=== PATIENT | male | born 1955 | race Caucasian/White ===

== ENCOUNTER 2017-06-07 07:43 | Day surgery (SDC) | payer MEDICARE ==
[~2017-06-07] VITALS: Ht 180.3 cm; Wt 127.0 kg
[~2017-06-07 07:43] MED LIST: ACHD5005 PO; HCT25T PO; HUMOLOG INSULIN; HYDR-3583 PO; HYDR-707 PO; HYDR25TA4 PO; IBP800T PO; INSU100I14 SQ; INSU100I5 SQ; INSU100V16 SQ; INSU100V5 SQ; LOSA50TA36 PO; LOSA50TA6 PO; MTF500T PO; ROSU20TA30 PO; SULF-222 PO; SULF1TAB38 PO; TRAM-42 PO; TRAM50TA2 PO; [UNRECOGNIZED DRUG - OTHER]
[2017-06-07 07:57] VITALS: BP 164/85
--- NOTE | 2017-06-07 07:58 | Progress Note-Pre Operative ---
Pre-Operative Progress Note H&P Reviewed The H&P was reviewed, patient examined and no changes noted. Time Seen by Provider: 07:58 Date H&P Reviewed: Jun 07, 2017 Time H&P Reviewed: 07:58 Pre-Operative Diagnosis: pco l eye CHEKO CARRENO MD Jun 07, 2017 07:58
[2017-06-07] MEDS ORDERED: TROPICAMIDE 1% OPH SOLN (MYDRIACYL) 3 ML BTL OU ONE (08:00)
[2017-06-07] MEDS: TETRACAINE 0.5% OPHTH SOLN 4 ML BTL (SINGLE DOSE ONLY) OU PRN ×4 (08:07→08:45)
[2017-06-07] MEDS: PHENYLEPHRINE 10% OPHTH (NEO-SYN) 5 ML BTL OP PRN ×3 (08:15→08:45)
[2017-06-07 09:16] VITALS: BP 156/86
--- NOTE | 2017-06-07 09:19 | Ophthalmology Operative Report ---
YAG Capsulotomy PREOPERATIVE DIAGNOSIS: Secondary Cataract Left Eye POSTOPERATIVE DIAGNOSIS: Secondary Cataract Left Eye PROCEDURE: YAG Capsulotomy, left eye SURGEON: Tay Carreno ANESTHESIA: Topical with sedation COMPLICATIONS: None ESTIMATED BLOOD LOSS: Minimal DESCRIPTION OF PROCEDURE: After proper informed consent was obtained, the patient's, a 61 male left eye received one drop of Tropicamide and one drop of Tetracaine. The patient was then placed at the YAG laser and using a power of [ 3.5] millijoules and [26] bursts were used to fashion a central capsulotomy. The patient tolerated the procedure well without complications and the patient's pressure was [ 12] shortly after the laser. TAY CARRENO MD Jun 07, 2017 09:19
--- OUTSIDE RECORDS SUMMARY | 2017-06-07 16:20 | XMS REPORT ---
Author NINA Crain Organization [employer] Address Unknown Phone Unavailable Care Team Providers Care Wire Preparation Worker Name Role Phone NINA BOB CP Unavailable Allergies No Known Allergies Problems Problem Type Condition Code Onset Dates Condition Status Problem Cough 786.2 Active Problem Cellulitis and abscess of unspecified site 682.9 Active Problem Encounter for change or removal of surgical wound dressing V58.31 Active Problem Diabetes 250.00 Active Problem Dysuria 788.1 Active Problem Pain in joint, shoulder region 719.41 Active Problem Unspecified arthropathy, site unspecified 716.90 Active Problem 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 [address]-60 7.5-200 MG 4 times a day. MUST LAST 30 DAYS July 09, 2014 1 tablet as needed Results No Known Results Summary Purpose eClinicalWorks Submission
--- OUTSIDE RECORDS SUMMARY | 2017-06-07 16:20 | XMS REPORT ---
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 checkup VITAL SIGNS Height 72 in 2016-09-14 Weight 279.8 lbs 2016-09-14 Temperature 98.4 degrees Fahrenheit 2016-09-14 Heart Rate 88 bpm 2016-09-14 Respiratory Rate 20 2016-09-14 BMI 37.94 kg/m2 2016-09-14 Blood pressure systolic 132 mmHg 2016-09-14 Blood pressure diastolic 82 mmHg 2016-09-14 MEDICATIONS Medication Instructions Dosage Frequency Start Date End Date Duration Status Losartan Potassium 50 MG Orally once a day 1 tablet 24h Active Parafon Forte DSC 500 MG TAKE ONE TABLET BY MOUTH TWICE DAILY 30 Active GlucaGen HypoKit 1 mg 1 time per dayPRNuse as directed for hypoglycemia Jun, Active Clonazepam 2 MG Orally 2 times a day 1 tablet 12h 28 days Active Insulin Syringe 31G X 5/16 sq 5 times daily as directed Jun, Active Levemir 100 UNIT/ML Subcutaneous 2 times a day INJECT 36 UNITS TWICE DAILY SUBCUTANEOUSLY 12h 90 Active Hydrocodone-Ibuprofen 7.5-200 MG Orally every 6 hrs 1 tablet as needed 6h August, Sep, 28 days Active NovoLog 100 UNIT/ML Subcutaneous 3 times a day inject 30 units 8h August, 30 days Active RESULTS Name Result Date Reference Range MICROALBUMIN/CREATININE RATIO, URINE 2016-09-14 Creatinine, Urine 36.8 Not Estab. Microalbumin, Urine 102.2 Not Estab. Microalb/Creat Ratio 277.7 0.0-30.0 MICROALBUMIN, URINE (IN HOUSE) 2016-09-14 MICROALBUMIN high abnormal Lot # [id number] Exp date 07/2017 Clarity clear Color yellow ALB 80 CRE 50 A:C (IN HOUSE) >300 Control + Control Lot # Exp date PROCEDURES Procedure Date Ordered Result Body Site MICROALBUMIN, SEMIQUANT September 14, 2016 LAB NOT BILLED BY [facility] September 14, 2016 [facility] VISIT ESTABLISHED PATIENT September 14, 2016 IMMUNIZATIONS No Known Immunizations MEDICAL (GENERAL) HISTORY Type Description Date Medical History type I diabetes-dx age 6 Medical History hypertension Medical History Arthritis Medical History neuropathy Medical History cataract surgery left eye Surgical History cholecystectomy ([facility]) 05/15/2011 Surgical History orthopedic surgery ([facility]) Surgical History laser eye surgery b/l Surgical History detrectomy right eye Surgical History cataract surgery left eye 01/2015 Hospitalization History pancreatitis & biliary dyskinesia 05/13/2011
--- OUTSIDE RECORDS SUMMARY | 2017-06-07 16:20 | XMS REPORT ---
Author NINA Crain Organization [employer] Address Unknown Phone Unavailable Care Team Providers Care Tile Picker Name Role Phone NINA BOB CP Unavailable [...] Start Date End Date Status Dosage Vicoprofen [facility] [address]-99 7.5-200 MG 4 times a day. MUST LAST 30 DAYS July 09, 2014 1 tablet as needed Results No Known Results Summary Purpose eClinicalWorks Submission
--- OUTSIDE RECORDS SUMMARY | 2017-06-07 16:20 | XMS REPORT ---
Author NINA Crain [facility] eClinical[employer] Address Unknown Phone Unavailable Care Team Providers Care Yam Curer Name Role Phone NINA BOB CP Unavailable Allergies, Adverse Reactions, Alerts Substance Reaction Event Type N.K.D.A. 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 Problem Encounter for change or removal of surgical wound dressing V58.31 Active Problem Unspecified arthropathy, site unspecified 716.90 Active Problem Diabetes 250.00 Active Problem Cellulitis and abscess of unspecified site 682.9 Active Assessment 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 Assessment Inflammatory polyneuropathy, 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 Assessment Diabetes E11.9 Active Problem Cough 786.2 Active Medications Medication Code System Code Instructions Start Date End Date Status Dosage Hydrochlorothiazide [facility] [address]-52 25 MG Orally Once a day 1 tablet Vicoprofen [facility] [address]-42 7.5-200 MG Orally 4 times a day July 09, 2014 Mar 16, 2016 1 tablet as needed Insulin Syringe [facility] 8326-277439 31G X 5/16 sq 5 times daily June 22, 2015 as directed Saw Morton [facility] [address]19 450 MG Orally once a day 1 capsule Clonazepam [facility] 78635015384 1 MG TAKE ONE TABLET BY MOUTH TWICE DAILY Levemir [facility] 65256795334 100 UNIT/ML INJECT 36 UNITS TWICE DAILY SUBCUTANEOUSLY Humalog [facility] [address]-55 100 UNIT/ML Subcutaneous 3 times a day June 21, 2014 inject 30 Units Losartan Potassium [facility] [address]-36 50 MG Orally once a day 1 tablet GlucaGen HypoKit [facility] [address]-40 1 mg July 06, 2011 1 time per dayPRNuse as directed for hypoglycemia Constance Urrutia DSC [facility] 61490594390 500 MG TAKE ONE TABLET BY MOUTH TWICE DAILY Vitamin C & E Complex NDC 0 not defined Metformin HCl [facility] [address]-84 500 MG Orally Twice a day 1 tablet with meals Lyrica [facility] [address]-20 50 MG Orally Three times a day Feb 20, 2016 1 capsule Procedures Procedure Coding System Code Date No Charge CPT-4 68800 Feb 20, 2016 [facility] VISIT ESTABLISHED PATIENT CPT-4 G0467 Feb 20, 2016 GLYCATED HEMOGLOBIN TEST CPT-4 29093 Feb 20, 2016 Office Visit, Est Pt., Level 3 CPT-4 68889 Feb 20, 2016 Vital Signs Date/Time: Feb 20, 2016 Cardiac Monitoring Heart Rate 100 bpm Weight 286.3 lbs Height 72 in BMI 38.83 Index Blood Pressure Diastolic 90 mmHg Blood Pressure Systolic 156 mmHg Results Name Result Date Reference Range Unit Abnormality Flag A1C (IN HOUSE) ----A1C IN HOUSE 8.3 [id number] 4.3 - 5.6 % ----Previous A1c 8.1 [id number] ----Lot [id number] ----Exp date [id number] Summary Purpose eClinicalWorks Submission
--- OUTSIDE RECORDS SUMMARY | 2017-06-07 16:20 | XMS REPORT ---
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
--- OUTSIDE RECORDS SUMMARY | 2017-06-07 16:20 | XMS REPORT ---
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
--- OUTSIDE RECORDS SUMMARY | 2017-06-07 16:20 | XMS REPORT ---
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 Problem Encounter for change or removal of surgical wound dressing V58.31 Active Problem Unspecified arthropathy, site unspecified 716.90 Active Problem Diabetes 250.00 Active Problem Cellulitis and abscess of unspecified site 682.9 Active Medications Medication Code System Code Instructions Start Date End Date Status Dosage Hydrochlorothiazide [facility] [address]-72 25 MG Orally Once a day 1 tablet Losartan Potassium [facility] [address]-31 50 MG Orally once a day 1 tablet Metformin HCl [facility] [address]-10 500 MG Orally Twice a day 1 tablet with meals Levemir [facility] 18173808442 100 UNIT/ML INJECT 36 UNITS TWICE DAILY SUBCUTANEOUSLY Humalog [facility] [address]-57 100 UNIT/ML Subcutaneous 3 times a day June 21, 2014 inject 30 Units Results No Known Results Summary Purpose eClinicalWorks Submission
--- OUTSIDE RECORDS SUMMARY | 2017-06-07 16:20 | XMS REPORT ---
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
--- OUTSIDE RECORDS SUMMARY | 2017-06-07 16:20 | XMS REPORT ---
Author NINA Crain Organization [employer] Address Unknown Phone Unavailable Care Team Providers Care Platen Builder Up Name Role Phone NINA BOB CP Unavailable [...] Instructions Start Date End Date Status Dosage Clonazepam [facility] 64168395817 1 MG 2 times a day 1 tablet Vicoprofen [facility] [address]-68 7.5-200 MG Orally 4 times a day July 09, 2014 Mar 16, 2016 1 tablet as needed Results No Known Results Summary Purpose eClinicalWorks Submission
--- OUTSIDE RECORDS SUMMARY | 2017-06-07 16:20 | XMS REPORT ---
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
--- OUTSIDE RECORDS SUMMARY | 2017-06-07 16:21 | XMS REPORT ---
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
--- OUTSIDE RECORDS SUMMARY | 2017-06-07 16:21 | XMS REPORT ---
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
--- OUTSIDE RECORDS SUMMARY | 2017-06-07 16:21 | XMS REPORT ---
Author NINA Crain Organization [employer] Address Unknown Phone Unavailable Care Team Providers Care Machine Welder Name Role Phone NINA BOB CP Unavailable [...] Start Date End Date Status Dosage Vicoprofen [facility] [address]-77 7.5-200 MG 4 times a day. PT MUST HAVE APPT FOR FURTHER REFILLS July 09, 2014 1 tablet as needed Results No Known Results Summary Purpose eClinicalWorks Submission
--- OUTSIDE RECORDS SUMMARY | 2017-06-07 16:21 | XMS REPORT ---
Author NINA Crain Organization [employer] Address Unknown Phone Unavailable Care Team Providers Care Manager Athletics Name Role Phone NINA BOB CP Unavailable [...] Instructions Start Date End Date Status Dosage Humalog [facility] [address]-63 100 UNIT/ML Subcutaneous 3 times a day June 21, 2014 inject 30 Units Levemir [facility] [address]-61 100 UNIT/ML Subcutaneous 2 times a day June 21, 2014 inject 36 Units Results No Known Results Summary Purpose eClinicalWorks Submission
--- OUTSIDE RECORDS SUMMARY | 2017-06-07 16:21 | XMS REPORT ---
Author NINA Crain [facility] e[employer] Address Unknown Phone Unavailable Care Team Providers Care Veneer Marker Name Role Phone NINA BOB CP Unavailable Allergies, Adverse Reactions, Alerts Substance Reaction Event Type N.K.D.A. Info Not Available Non Drug Allergy Problems Problem Type Condition ICD-9 Code Onset Dates Condition Status Problem Cough 786.2 Active Assessment Diabetes 250.00 Active Problem Cellulitis and abscess [...] Start Date End Date Status Dosage Hydrochlorothiazide [facility] [address]-13 25 MG Orally Once a day 1 tablet Levemir [facility] [address]-55 100 unit/mL June 21, 2014 inject 36 Units by Subcutaneous route 2 times per day at bedtime Parafon Forte DSC [facility] [address]-50 500 mg Feb 19, 2014 1 tablet by Oral route 2 times per day Vicoprofen [facility] [address]-18 7.5-200 MG 4 times a day. PT MUST F/U FOR FURTHER REFILLS July 09, 2014 1 tablet as needed Losartan Potassium [facility] [address]-13 50 MG Orally not defined metformin NDC 0 500 mg June 21, 2014 1 tablet by Oral route 2 times per day Humalog [facility] [address]-38 100 unit/mL June 21, 2014 inject 30 Units by Subcutaneous route 3 times per day before meals Procedures Procedure Coding System Code Date [facility] VISIT ESTABLISHED PATIENT CPT-4 G0467 Jan 05, 2015 Office Visit, Est Pt., Level 3 CPT-4 70029 Jan 05, 2015 GLYCATED HEMOGLOBIN TEST CPT-4 45395 Jan 05, 2015 Vital Signs Date/Time: Jan 05, 2015 Temperature 97.0 F Weight 278.5 lbs Height 72 in BMI 37.77 Index Blood Pressure Diastolic 82 mmHg Blood Pressure Systolic 150 mmHg Cardiac Monitoring Heart Rate 84 bpm Results No Known Results Summary Purpose eClinicalWorks Submission
--- OUTSIDE RECORDS SUMMARY | 2017-06-07 16:21 | XMS REPORT ---
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
--- OUTSIDE RECORDS SUMMARY | 2017-06-07 16:21 | XMS REPORT ---
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
--- OUTSIDE RECORDS SUMMARY | 2017-06-07 16:21 | XMS REPORT ---
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 409442300 Problem Mood disorder F39 Active 25763168 Problem Chronic pain syndrome G89.4 Active 571347700 ALLERGIES Unknown Allergies SOCIAL HISTORY No smoking Hx information available PLAN OF CARE VITAL SIGNS MEDICATIONS Medication Instructions Dosage Frequency Start Date End Date Duration Status Humalog 100 UNIT/ML Subcutaneous 3 times a day inject 30 Units 8h Jun, Active Losartan Potassium 50 MG Orally once a day 1 tablet 24h Active Parafon Forte DSC 500 MG TAKE ONE TABLET BY MOUTH TWICE DAILY 30 Active Vicoprofen 7.5-200 MG Orally 4 times a day 1 tablet as needed 6h Jun, 28 days Active Insulin Syringe 31G X 5/16 sq 5 times daily as directed Jun, Active Saw [place] 450 MG Orally once a day 1 capsule 24h Active Metformin HCl 500 MG Orally Twice a day 1 tablet with meals 12h 30 days Active Levemir 100 UNIT/ML INJECT 36 UNITS TWICE DAILY SUBCUTANEOUSLY 90 Active GlucaGen HypoKit 1 mg 1 time per dayPRNuse as directed for hypoglycemia Jun, Active Hydrochlorothiazide 25 MG Orally Once a day 1 tablet 24h Active Clonazepam 1 MG Orally 2 times a day 1 tablet 12h 28 days Active RESULTS Name Result Date Reference Range [employer] 2016-05-16 PROCEDURES Procedure Date Ordered Related Diagnosis Body Site No Charge May 16, 2016 IMMUNIZATIONS No Known Immunizations
--- OUTSIDE RECORDS SUMMARY | 2017-06-07 16:21 | XMS REPORT ---
Author Author NINA BOB Organization [employer] Address Unknown Phone Unavailable Care Team Providers Care Disposal Worker Name Role Phone NINA BOB CP Unavailable Allergies No Known Allergies Problems Problem Type Condition ICD-9 Code Onset [...] inflammatory and toxic neuropathy 357.9 Active Medications No Known Medications Results No Known Results Summary Purpose [employer] Submission
--- OUTSIDE RECORDS SUMMARY | 2017-06-07 16:21 | XMS REPORT ---
Author Author NINA BOB Organization [employer] Address Unknown Phone Unavailable Care Team Providers Care Ice Cream Vault Worker Name Role Phone NINA BOB CP [...] Start Date End Date Status Dosage Vicoprofen [facility] [address]-33 7.5-200 MG Orally 4 times a day July 09, 2014 Mar 16, 2016 1 tablet as needed Results No Known Results Summary Purpose [employer] Submission
--- OUTSIDE RECORDS SUMMARY | 2017-06-07 16:21 | XMS REPORT ---
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 Unknown Non Drug Allergy Apr, Unknown SOCIAL HISTORY No smoking Hx information available PLAN OF CARE VITAL SIGNS Height 72 in 2016-05-03 Weight 281.3 lbs 2016-05-03 Temperature 98.7 degrees Fahrenheit 2016-05-03 Heart Rate 104 bpm 2016-05-03 Respiratory Rate 20 2016-05-03 BMI 38.15 kg/m2 2016-05-03 Blood pressure systolic 168 mmHg 2016-05-03 Blood pressure diastolic 114 mmHg 2016-05-03 MEDICATIONS Medication Instructions Dosage Frequency Start Date End Date Duration Status Insulin Syringe 31G X 5/16 sq 5 times daily as directed Jun, Active Parafon Forte DSC 500 MG TAKE ONE TABLET BY MOUTH TWICE DAILY 30 Active GlucaGen HypoKit 1 mg 1 time per dayPRNuse as directed for hypoglycemia Jun, Active Saw [place] 450 MG Orally once a day 1 capsule 24h Active Clonazepam 1 MG 1 tablet 12h Active Vicoprofen 7.5-200 MG Orally 4 times a day 1 tablet as needed 6h Jun, 28 days Active Metformin HCl 500 MG Orally Twice a day 1 tablet with meals 12h 30 days Active Levemir 100 UNIT/ML INJECT 36 UNITS TWICE DAILY SUBCUTANEOUSLY 90 Active Hydrochlorothiazide 25 MG Orally Once a day 1 tablet 24h Active Losartan Potassium 50 MG Orally once a day 1 tablet 24h Active Humalog 100 UNIT/ML Subcutaneous 3 times a day inject 30 Units 8h Jun, Active RESULTS No Results PROCEDURES Procedure Date Ordered Related Diagnosis Body Site [facility] VISIT ESTABLISHED PATIENT May 03, 2016 Office Visit, Est Pt., Level 3 May 03, 2016 IMMUNIZATIONS No Known Immunizations
--- OUTSIDE RECORDS SUMMARY | 2017-06-07 16:21 | XMS REPORT ---
Author Author NINA BOB 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
--- OUTSIDE RECORDS SUMMARY | 2017-06-07 16:21 | XMS REPORT ---
Author Author NINA BOB Organization [employer] Address Unknown Phone Unavailable Care Team Providers Care Qa Manager Name Role Phone NINA BOB CP Unavailable [...] Start Date End Date Status Dosage Vicoprofen [facility] [address]-77 7.5-200 MG 4 times a day July 09, 2014 1 tablet as needed Results No Known Results Summary Purpose [employer] Submission
--- OUTSIDE RECORDS SUMMARY | 2017-06-07 16:21 | XMS REPORT ---
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
--- OUTSIDE RECORDS SUMMARY | 2017-06-07 16:22 | XMS REPORT ---
Author NINA Crain Organization [employer] Address Unknown Phone Unavailable Care Team Providers Care Crop Duster Name Role Phone NINA BOB CP Unavailable [...]
--- OUTSIDE RECORDS SUMMARY | 2017-06-07 16:22 | XMS REPORT ---
Author NINA Crain Organization [employer] Address Unknown Phone Unavailable Care Team Providers Care Belt Sander Name Role Phone NINA BOB CP Unavailable [...] Start Date End Date Status Dosage Vicoprofen [facility] [address]-28 7.5-200 MG Orally 4 times a day July 09, 2014 Mar 16, 2016 1 tablet as needed Results No Known Results Summary Purpose [employer] Submission
--- OUTSIDE RECORDS SUMMARY | 2017-06-07 16:22 | XMS REPORT ---
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
--- OUTSIDE RECORDS SUMMARY | 2017-06-07 16:22 | XMS REPORT ---
Author Author NINA BOB Organization [employer] Address Unknown Phone Unavailable Care Team Providers Care Batt Packer Name Role Phone NINA BOB CP Unavailable [...] Date End Date Status Dosage Vicoprofen [facility] [address]-31 7.5-200 MG 4 times a day July 09, 2014 1 tablet as needed Results No Known Results Summary Purpose [employer] Submission
--- OUTSIDE RECORDS SUMMARY | 2017-06-07 16:22 | XMS REPORT ---
Author Author NINA BOB [facility] Address [address] [place] [address] Care Team Providers Care Manager Summer Name Role Phone NINA BOB Unavailable PROBLEMS Type Condition ICD9-CM Code [id number] Code Onset Dates Condition Status SNOMED Code Problem Cough 786.2 Active 72763431 Problem Dysuria 788.1 Active 08314842 Problem Pain in joint, shoulder region 719.41 Active 267336542 Problem Diabetes E11.9 Active 287783560 Problem Diabetes 250.00 Active 58339645 Problem Unspecified arthropathy, site unspecified 716.90 Active 240398266 Problem Unspecified inflammatory and toxic neuropathy 357.9 Active 542779282 Problem Cellulitis and abscess of unspecified site 682.9 Active 284371953 Problem Encounter for change or removal of surgical wound dressing V58.31 Active 65774026 ALLERGIES Unknown Allergies SOCIAL HISTORY No smoking Hx information available PLAN OF CARE VITAL SIGNS MEDICATIONS Medication Instructions Dosage Frequency Start Date End Date Duration Status Clonazepam 1 MG Orally Twice a day 1 tablet 12h 25 Apr, 2015 Active RESULTS No Results PROCEDURES No Known procedures IMMUNIZATIONS No Known Immunizations
--- OUTSIDE RECORDS SUMMARY | 2017-06-07 16:22 | XMS REPORT ---
Author NINA Crain [facility] [employer] Address Unknown Phone Unavailable Care Team Providers Care Staff Readiness Officer Name Role Phone NINA BOB CP Unavailable Allergies, Adverse Reactions, Alerts Substance Reaction Event Type N.K.D.A. Info Not Available Non Drug Allergy Problems Problem Type Condition Code Onset Dates Condition Status Assessment Diabetes E11.9 Active Problem Pain in joint, shoulder region 719.41 Active Problem Cough 786.2 Active Assessment Anxiety F41.9 Active Problem Diabetes 250.00 Active Problem Cellulitis and abscess of unspecified site 682.9 Active Problem Diabetes E11.9 Active Problem Unspecified inflammatory and toxic neuropathy 357.9 Active Problem Dysuria 788.1 Active Problem Encounter for change or removal of surgical wound dressing V58.31 Active Problem Unspecified arthropathy, site unspecified 716.90 Active Medications Medication Code System Code Instructions Start Date End Date Status Dosage Parafon Forte DSC [facility] 07377035801 500 MG TAKE ONE TABLET BY MOUTH TWICE DAILY Clonazepam [facility] [address]-48 1 MG Orally Twice a day May 16, 2015 1 tablet Hydrochlorothiazide [facility] [address]-41 25 MG Orally Once a day 1 tablet Levemir [facility] 62501508665 100 UNIT/ML INJECT 36 UNITS TWICE DAILY SUBCUTANEOUSLY Humalog [facility] [address]-07 100 UNIT/ML Subcutaneous 3 times a day June 21, 2014 inject 30 Units Losartan Potassium [facility] [address]-33 50 MG Orally once a day 1 tablet Vicoprofen [facility] [address]-35 7.5-200 MG 4 times a day. PT MUST COME TO APPT FOR FURTHER REFILLS July 09, 2014 1 tablet as needed Procedures Procedure Coding System Code Date MICROALBUMIN, SEMIQUANT CPT-4 94661 May 16, 2015 [facility] CPT-4 NOBLL May 16, 2015 GLYCATED HEMOGLOBIN TEST CPT-4 94607 May 16, 2015 Office Visit, Est Pt., Level 3 CPT-4 87153 May 16, 2015 [facility] VISIT ESTABLISHED PATIENT CPT-4 G0467 May 16, 2015 Vital Signs Date/Time: May 16, 2015 Temperature 98.3 F Weight 284.9 lbs Height 72 in BMI 38.64 Index Blood Pressure Diastolic 98 mmHg Blood Pressure Systolic 186 mmHg Cardiac Monitoring Heart Rate 108 bpm Results No Known Results Summary Purpose [employer] Submission
--- OUTSIDE RECORDS SUMMARY | 2017-06-07 16:22 | XMS REPORT ---
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
--- OUTSIDE RECORDS SUMMARY | 2017-06-07 16:22 | XMS REPORT | Continuity of Care Document ---
Author Author [facility] Organization [facility] Address Unknown Phone Unavailable Allergies Active Description Code Type Severity Reaction Onset Reported/Identified Relationship to Patient Clinical Status Yes No Known Drug Allergies [id number] Drug Allergy Unknown N/A 03/23/2016 Medications There is no data. Problems Date Dx Coded Attending Type Code Diagnosis Diagnosed By 11/05/2007 NINA BOB APRN 706.2 SEBACEOUS CYST 11/05/2007 NINA BOB APRN 706.2 SEBACEOUS CYST 11/05/2007 NINA BOB APRN 706.2 SEBACEOUS CYST 11/05/2007 NINA BOB APRN 706.2 SEBACEOUS CYST 11/05/2007 PRITESH MCCULLOUGH DO 706.2 SEBACEOUS CYST 11/05/2007 NINA BOB APRN 706.2 SEBACEOUS CYST 11/05/2007 NINA BOB APRN 706.2 SEBACEOUS CYST 11/05/2007 NINA BOB APRN 706.2 SEBACEOUS CYST 11/05/2007 NINA BOB APRN 706.2 SEBACEOUS CYST 11/05/2007 NINA BOB APRN 706.2 SEBACEOUS CYST 11/05/2007 NINA BOB APRN 706.2 SEBACEOUS CYST 10/20/2008 NINA BOB APRN 250.00 DIABETES MELLITUS TYPE II 10/20/2008 NINA BOB APRN 401.9 HYPERTENSION, UNSPECIFIED ESSENTIAL 10/20/2008 NINA BOB APRN 250.00 DIABETES MELLITUS TYPE II 10/20/2008 NINA BOB APRN 401.9 HYPERTENSION, UNSPECIFIED ESSENTIAL 10/20/2008 NINA BOB APRN 250.00 DIABETES MELLITUS TYPE II 10/20/2008 NINA BOB APRN 401.9 HYPERTENSION, UNSPECIFIED ESSENTIAL 10/20/2008 NINA BOB APRN 250.00 DIABETES MELLITUS TYPE II 10/20/2008 NINA BOB APRN 401.9 HYPERTENSION, UNSPECIFIED ESSENTIAL 10/20/2008 MCCULLOUGH DO, PRITESH K 250.00 DIABETES MELLITUS TYPE II 10/20/2008 MCCULLOUGH DO, PRITESH K 401.9 HYPERTENSION, UNSPECIFIED ESSENTIAL 10/20/2008 PAULINO INDUSTRIAL GAS SERVICE HELPER, NINA T 250.00 DIABETES MELLITUS TYPE II 10/20/2008 PAULINO INDUSTRIAL GAS SERVICE HELPER, NINA T 401.9 HYPERTENSION, UNSPECIFIED ESSENTIAL 10/20/2008 PAULINO INDUSTRIAL GAS SERVICE HELPER, NINA T 250.00 DIABETES MELLITUS TYPE II 10/20/2008 PAULINO INDUSTRIAL GAS SERVICE HELPER, NINA T 401.9 HYPERTENSION, UNSPECIFIED ESSENTIAL 10/20/2008 PAULINO INDUSTRIAL GAS SERVICE HELPER, NINA T 250.00 DIABETES MELLITUS TYPE II 10/20/2008 PAULINO INDUSTRIAL GAS SERVICE HELPER, NINA T 401.9 HYPERTENSION, UNSPECIFIED ESSENTIAL 10/20/2008 PALUINO INDUSTRIAL GAS SERVICE HELPER, NINA T 250.00 DIABETES MELLITUS TYPE II 10/20/2008 PAULINO INDUSTRIAL GAS SERVICE HELPER, NINA T 401.9 HYPERTENSION, UNSPECIFIED ESSENTIAL 10/20/2008 PAULINO INDUSTRIAL GAS SERVICE HELPER, NINA T 250.00 DIABETES MELLITUS TYPE II 10/20/2008 PAULINO INDUSTRIAL GAS SERVICE HELPER, NINA T 401.9 HYPERTENSION, UNSPECIFIED ESSENTIAL 10/20/2008 PAULINO INDUSTRIAL GAS SERVICE HELPER, NINA T 250.00 DIABETES MELLITUS TYPE II 10/20/2008 PAULINO INDUSTRIAL GAS SERVICE HELPER, NINA T 401.9 HYPERTENSION, UNSPECIFIED ESSENTIAL 10/27/2008 PAULINO INDUSTRIAL GAS SERVICE HELPER, NINA T 250.02 DIABETES II UNCONTROLLED 10/27/2008 PAULINO INDUSTRIAL GAS SERVICE HELPER, NINA T 250.02 DIABETES II UNCONTROLLED 10/27/2008 PAULINO INDUSTRIAL GAS SERVICE HELPER, NINA T 250.02 DIABETES II UNCONTROLLED 10/27/2008 PAULINO INDUSTRIAL GAS SERVICE HELPER, NINA T 250.02 DIABETES II UNCONTROLLED 10/27/2008 MCCULLOUGH DO, PRITESH K 250.02 DIABETES II UNCONTROLLED 10/27/2008 PAULINO INDUSTRIAL GAS SERVICE HELPER, NINA T 250.02 DIABETES II UNCONTROLLED 10/27/2008 PAULINO INDUSTRIAL GAS SERVICE HELPER, NINA T 250.02 DIABETES II UNCONTROLLED 10/27/2008 PAULINO INDUSTRIAL GAS SERVICE HELPER, NINA T 250.02 DIABETES II UNCONTROLLED 10/27/2008 PAULINO INDUSTRIAL GAS SERVICE HELPER, NINA T 250.02 DIABETES II UNCONTROLLED 10/27/2008 PAULINO INDUSTRIAL GAS SERVICE HELPER, NINA T 250.02 DIABETES II UNCONTROLLED 10/27/2008 PAULINO INDUSTRIAL GAS SERVICE HELPER, NINA T 250.02 DIABETES II UNCONTROLLED 11/03/2008 PAULINO INDUSTRIAL GAS SERVICE HELPER, NINA T 250.03 DIABETES MELLITUS TYPE I - UNCONTROLLED 11/03/2008 PAULINO INDUSTRIAL GAS SERVICE HELPER, NINA T 250.03 DIABETES MELLITUS TYPE I - UNCONTROLLED 11/03/2008 PAULINO INDUSTRIAL GAS SERVICE HELPER, NINA T 250.03 DIABETES MELLITUS TYPE I - UNCONTROLLED 11/03/2008 NINA BOB APRN 250.03 DIABETES MELLITUS TYPE I - UNCONTROLLED 11/03/2008 MCCULLOUGH DODINAA K 250.03 DIABETES MELLITUS TYPE I - UNCONTROLLED 11/03/2008 NINA BOB APRN 250.03 DIABETES MELLITUS TYPE I - UNCONTROLLED 11/03/2008 NINA BOB APRN 250.03 DIABETES MELLITUS TYPE I - UNCONTROLLED 11/03/2008 NINA BOB APRN 250.03 DIABETES MELLITUS TYPE I - UNCONTROLLED 11/03/2008 NINA BOB APRN 250.03 DIABETES MELLITUS TYPE I - UNCONTROLLED 11/03/2008 NINA BOB APRN 250.03 DIABETES MELLITUS TYPE I - UNCONTROLLED 11/03/2008 NINA BOB APRN 250.03 DIABETES MELLITUS TYPE I - UNCONTROLLED 11/28/2009 Ot 785.6 05/16/2011 Ot 250.60 DIAB W NEURO MANIFEST, TYPE II OR UNSPEC 05/16/2011 Ot 357.2 NEUROPATHY IN DIABETES 05/16/2011 Ot 575.11 CHRONIC CHOLECYSTITIS 05/16/2011 Ot 575.8 DIS OF GALLBLADDER NEC 05/16/2011 Ot 577.0 ACUTE PANCREATITIS 05/16/2011 Ot V58.67 LONG-TERM ( CURRENT) USE OF INSULIN 07/16/2011 NINA BOB APRN 786.2 COUGH 07/16/2011 NINA BOB APRN 786.2 COUGH 07/16/2011 NINA BOB APRN 786.2 COUGH 07/16/2011 NINA BOB APRN 786.2 COUGH 07/16/2011 MCCULLOUGH DOPRITESH K 786.2 COUGH 07/16/2011 NINA BOB APRN 786.2 COUGH 07/16/2011 NINA BOB APRN 786.2 COUGH 07/16/2011 NINA BOB APRN 786.2 COUGH 07/16/2011 NINA BOB APRN 786.2 COUGH 07/16/2011 NINA BOB APRN 786.2 COUGH 07/16/2011 NINA BOB APRN 786.2 COUGH 12/10/2011 NINA BOB APRN 719.41 PAIN IN JOINT INVOLVING SHOULDER REGION 12/10/2011 NINA BOB APRN 788.1 DYSURIA 12/10/2011 NINA BOB APRN 719.41 PAIN IN JOINT INVOLVING SHOULDER REGION 12/10/2011 NINA BOB APRN 788.1 DYSURIA 12/10/2011 NINA BOB APRN 719.41 PAIN IN JOINT INVOLVING SHOULDER REGION 12/10/2011 NINA BOB APRN 788.1 DYSURIA 12/10/2011 NINA BOB APRN 719.41 PAIN IN JOINT INVOLVING SHOULDER REGION 12/10/2011 NINA BOB APRN 788.1 DYSURIA 12/10/2011 MCCULLOUGH DO PRITESH K 719.41 PAIN IN JOINT INVOLVING SHOULDER REGION 12/10/2011 MCCULLOUGH DO, PRITESH K 788.1 DYSURIA 12/10/2011 NINA BOB APRN 719.41 PAIN IN JOINT INVOLVING SHOULDER REGION 12/10/2011 NINA BOB APRN 788.1 DYSURIA 12/10/2011 NINA BOB APRN 719.41 PAIN IN JOINT INVOLVING SHOULDER REGION 12/10/2011 NINA BOB APRN 788.1 DYSURIA 12/10/2011 NINA BOB APRN 719.41 PAIN IN JOINT INVOLVING SHOULDER REGION 12/10/2011 NINA BOB APRN 788.1 DYSURIA 12/10/2011 NINA BOB APRN 719.41 PAIN IN JOINT INVOLVING SHOULDER REGION 12/10/2011 NINA BOB APRN 788.1 DYSURIA 12/10/2011 NINA BOB APRN 719.41 PAIN IN JOINT INVOLVING SHOULDER REGION 12/10/2011 NINA BOB APRN 788.1 DYSURIA 12/10/2011 NINA BOB APRN 719.41 PAIN IN JOINT INVOLVING SHOULDER REGION 12/10/2011 NINA BOB APRN 788.1 DYSURIA 10/15/2012 ELLIOT ADAMS DO Ot 719.45 JOINT PAIN-PELVIS 10/15/2012 ELLIOT ADAMS DO Ot 843.9 SPRAIN HIP THIGH NOS 10/15/2012 ELLIOT ADAMS DO Ot E000.8 OTHER EXTERNAL CAUSE STATUS 10/15/2012 ELLIOT ADAMS DO Ot E849.0 ACCIDENT IN HOME 10/15/2012 ELLIOT ADAMS DO Ot E888.9 FALL NOS 01/19/2013 INDER HOLCOMB APRN Ot 682.2 CELLULITIS OF TRUNK 01/19/2013 INDER HOLCOMB APRN Ot 706.2 SEBACEOUS CYST 01/19/2013 INDER HOLCOMB APRN Ot 782.2 LOCAL SUPRFICIAL SWELLNG 01/20/2013 INDER HOLCOMB INDUSTRIAL GAS SERVICE HELPER Ot 682.2 CELLULITIS OF TRUNK 01/20/2013 INDER HOLCOMB INDUSTRIAL GAS SERVICE HELPER Ot 706.2 SEBACEOUS CYST 01/20/2013 INDER HOLCOMB APRN Ot V58.31 ENCOUNTER FOR CHANGE OR REMOVAL OF SURGI 01/21/2013 NINA BOB APRN 682.9 CELLULITIS AND ABSCESS OF UNSPECIFIED SITES 01/21/2013 JAMEL DODINAA K 682.9 CELLULITIS AND ABSCESS OF UNSPECIFIED SITES 01/21/2013 NINA BOB APRN 682.9 CELLULITIS AND ABSCESS OF UNSPECIFIED SITES 01/21/2013 NINA BOB APRN 682.9 CELLULITIS AND ABSCESS OF UNSPECIFIED SITES 01/21/2013 NINA BOB APRN 682.9 CELLULITIS AND ABSCESS OF UNSPECIFIED SITES 01/21/2013 NINA BOB APRN 682.9 CELLULITIS AND ABSCESS OF UNSPECIFIED SITES 01/21/2013 NINA BOB APRN 682.9 CELLULITIS AND ABSCESS OF UNSPECIFIED SITES 01/21/2013 NINA BOB APRN 682.9 CELLULITIS AND ABSCESS OF UNSPECIFIED SITES 01/23/2013 NINA BOB APRN T V58.31 WOUND DRESSING 01/23/2013 MCCULLOUGH DO, PRITESH K V58.31 WOUND DRESSING 01/23/2013 NINA BOB APRN T V58.31 WOUND DRESSING 01/23/2013 NINA BOB APRN T V58.31 WOUND DRESSING 01/23/2013 NINA BOB APRN T V58.31 WOUND DRESSING 01/23/2013 NINA BOB APRN T V58.31 WOUND DRESSING 01/23/2013 NINA BOB APRN T V58.31 WOUND DRESSING 01/23/2013 NINA BOB APRN T V58.31 WOUND DRESSING 08/24/2013 NINA BOB APRN 357.9 NEUROPATHY UNSP 08/24/2013 NINA BOB APRN 716.90 ARTHRITIS/ ARTHROPATHY, UNSPECIFIED 08/24/2013 NINA BOB APRN 357.9 NEUROPATHY UNSP 08/24/2013 NINA BOB APRN 716.90 ARTHRITIS/ ARTHROPATHY, UNSPECIFIED 08/24/2013 NINA BOB APRN 357.9 NEUROPATHY UNSP 08/24/2013 NINA BOB APRN 716.90 ARTHRITIS/ ARTHROPATHY, UNSPECIFIED 08/24/2013 NINA BOB APRN 357.9 NEUROPATHY UNSP 08/24/2013 NINA BOB APRN T 716.90 ARTHRITIS/ ARTHROPATHY, UNSPECIFIED 08/24/2013 NINA BOB APRN 357.9 NEUROPATHY UNSP 08/24/2013 NINA BOB APRN T 716.90 ARTHRITIS/ ARTHROPATHY, UNSPECIFIED 08/24/2013 NINA BOB APRN 357.9 NEUROPATHY UNSP 08/24/2013 NINA BOB APRN 716.90 ARTHRITIS/ ARTHROPATHY, UNSPECIFIED 12/13/2015 NICOLE SEWELL, PAULA T Ot E11.649 TYPE 2 DIABETES MELLITUS WITH HYPOGLYCEM 12/13/2015 PAULA RIVERA MD T Ot G57.90 UNSPECIFIED MONONEUROPATHY OF UNSPECIFIE 12/13/2015 PAULA RIVERA MD T Ot R41.82 ALTERED MENTAL STATUS, UNSPECIFIED 12/13/2015 PAULA RIVERA MD T Ot Z79.4 CARRIAGE SETTER (CURRENT) USE OF INSULIN 12/13/2015 PAULA RIVERA MD T Ot Z91.14 PATIENT'S OTHER NONCOMPLIANCE WITH MEDIC 12/14/2015 PAULA RIVERA MD T Ot E11.649 TYPE 2 DIABETES MELLITUS WITH HYPOGLYCEM 12/14/2015 PAULA RIVERA MD T Ot G57.90 UNSPECIFIED MONONEUROPATHY OF UNSPECIFIE 12/14/2015 PAULA RIVERA MD T Ot R41.82 ALTERED MENTAL STATUS, UNSPECIFIED 12/14/2015 PAULA RIVERA MD T Ot Z79.4 CARRIAGE SETTER (CURRENT) USE OF INSULIN 12/14/2015 PAULA RIVERA MD T Ot Z91.14 PATIENT'S OTHER NONCOMPLIANCE WITH MEDIC 03/23/2016 INDER HOLCOMB APRN Ot E11.40 TYPE 2 DIABETES MELLITUS WITH DIABETIC N 03/23/2016 INDER HOLCOMB APRN Ot I10 ESSENTIAL (PRIMARY) HYPERTENSION 03/23/2016 INDER HOLCOMB APRN Ot M25.461 EFFUSION, RIGHT KNEE 03/23/2016 INDER HOLCOMB APRN Ot M54.16 RADICULOPATHY, LUMBAR REGION 03/23/2016 INDER HOLCOMB APRN Ot M79.661 PAIN IN RIGHT LOWER LEG 03/23/2016 INDER HOLCOMB APRN Ot Z79.4 FDC (CURRENT) USE OF INSULIN 03/23/2016 INDER HOLCOMB APRN Ot Z79.84 CARRIAGE SETTER (CURRENT) USE OF ORAL HYPOGLYC Procedures Code Description Performed By Performed On 51.23 05/15/2011 39224 A1C (IN-HOUSE) 03/24/2012 66365 A1C (IN-HOUSE) 09/03/2012 33679 A1C (IN-HOUSE) 01/21/2013 [place]VA [place] 01/23/2013 87960 A1C (IN-HOUSE) 08/24/2013 71437 MICRO ALBUMIN-IN HOUSE 08/24/2013 76203 MICROALBUMIN 08/24/2013 95756 ROUTINE VENIPUNCTURE 08/25/2013 96089 CMP 08/25/2013 28737 LIPID PANEL 08/25/2013 56741 CBC 08/25/2013 65298 A1C (IN-HOUSE) 01/20/2014 51528 MICRO ALBUMIN-IN HOUSE 08/04/2014 14263 A1C (IN-HOUSE) 08/04/2014 86981 MICROALBUMIN 08/04/2014 Results Test Result Range Complete blood count (CBC) with automated white blood cell (WBC) differential - 12/13/15 16:11 Blood leukocytes automated count (number/volume) 8.5 10*3/uL 4.3-11.0 Blood erythrocytes automated count (number/volume) 5.23 10*6/uL 4.35-5.85 Venous blood hemoglobin measurement (mass/volume) 14.9 g/dL 13.3-17.7 Blood hematocrit (volume fraction) 43 % 40-54 Automated erythrocyte mean corpuscular volume 82 [foz_us] 80-99 Automated erythrocyte mean corpuscular hemoglobin (mass per erythrocyte) 29 pg 25-34 Automated erythrocyte mean corpuscular hemoglobin concentration measurement ( mass/volume) 35 g/dL 32-36 Automated erythrocyte distribution width ratio 14.0 % 10.0-14.5 Automated blood platelet count (count/volume) 280 10*3/uL 130-400 Automated blood platelet mean volume measurement 9.9 [foz_us] 7.4-10.4 Automated blood neutrophils/100 leukocytes 58 % 42-75 Automated blood lymphocytes/100 leukocytes 29 % 12-44 Blood monocytes/100 leukocytes 9 % 0-12 Automated blood eosinophils/100 leukocytes 4 % 0-10 Automated blood basophils/100 leukocytes 1 % 0-10 Blood neutrophils automated count (number/volume) 4.9 10*3 1.8-7.8 Blood lymphocytes automated count (number/volume) 2.5 10*3 1.0-4.0 Blood monocytes automated count (number/volume) 0.7 10*3 0.0-1.0 Automated eosinophil count 0.4 10*3/uL 0.0-0.3 Automated blood basophil count (count/volume) 0.1 10*3/uL 0.0-0.1 Comprehensive metabolic panel - 12/13/15 16:11 Serum or plasma sodium measurement (moles/volume) 135 mmol/L 135-145 Serum or plasma potassium measurement (moles/volume) 4.0 mmol/L 3.6-5.0 Serum or plasma chloride measurement (moles/volume) 102 mmol/L 98-107 Carbon dioxide 25 mmol/L 21-32 Serum or plasma anion gap determination (moles/volume) 8 mmol/L 5-14 Serum or plasma urea nitrogen measurement (mass/volume) 18 mg/dL 7-18 Serum or plasma creatinine measurement (mass/volume) 1.11 mg/dL 0.60-1.30 Serum or plasma urea nitrogen/creatinine mass ratio 16 NRG Serum or plasma creatinine measurement with calculation of estimated glomerular filtration rate > NRG Serum or plasma glucose measurement (mass/volume) 229 mg/dL 70-105 Serum or plasma calcium measurement (mass/volume) 9.4 mg/dL 8.5-10.1 Serum or plasma total bilirubin measurement (mass/volume) 0.4 mg/dL 0.1-1.0 Serum or plasma alkaline phosphatase measurement (enzymatic activity/volume) 78 U/L 40-136 Serum or plasma aspartate aminotransferase measurement (enzymatic activity/ volume) 49 U/L 5-34 Serum or plasma alanine aminotransferase measurement (enzymatic activity/volume ) 28 U/L 0-55 Serum or plasma protein measurement (mass/volume) 6.1 g/dL 6.4-8.2 Serum or plasma albumin measurement (mass/volume) 3.5 g/dL 3.2-4.5 Magnesium - 12/13/15 16:11 Magnesium 2.1 mg/dL 1.8-2.4 Serum or plasma troponin i.cardiac measurement (mass/volume) - 12/13/15 16:11 Serum or plasma troponin i.cardiac measurement (mass/volume) < ng/ mL <0.30 Serum or plasma ethanol measurement (mass/volume) - 12/13/15 16:11 Serum or plasma ethanol measurement (mass/volume) < mg/dL <10 Complete urinalysis with reflex to culture - 12/13/15 16:35 Urine color determination YELLOW NRG Urine clarity determination CLEAR NRG Urine pH measurement by test strip 5 5-9 Specific gravity of urine by test strip 1.010 1.016- 1.022 Urine protein assay by test strip, semi-quantitative 3+ NEGATIVE Urine glucose detection by automated test strip 2+ NEGATIVE Erythrocytes detection in urine sediment by light microscopy 2+ NEGATIVE Urine ketones detection by automated test strip NEGATIVE NEGATIVE Urine nitrite detection by test strip NEGATIVE NEGATIVE Urine total bilirubin detection by test strip NEGATIVE NEGATIVE Urine urobilinogen measurement by automated test strip (mass/volume) NORMAL NORMAL Urine leukocyte esterase detection by dipstick NEGATIVE NEGATIVE Automated urine sediment erythrocyte count by microscopy (number/high power field) RARE NRG Automated urine sediment leukocyte count by microscopy (number/high power field ) RARE NRG Bacteria detection in urine sediment by light microscopy NEGATIVE NRG Crystals detection in urine sediment by light microscopy NONE NRG Casts detection in urine sediment by light microscopy NONE NRG Mucus detection in urine sediment by light microscopy NEGATIVE NRG Complete urinalysis with reflex to culture NO NRG Urine drug screening test - 12/13/15 16:35 Urine acetaminophen detection by screening method NEGATIVE NEGATIVE Urine phencyclidine detection by screening method NEGATIVE NEGATIVE Urine benzodiazepines detection by screening method NEGATIVE NEGATIVE Urine cocaine detection NEGATIVE NEGATIVE Urine amphetamines detection by screening method NEGATIVE NEGATIVE Urine methamphetamine detection by screening method NEGATIVE NEGATIVE Urine cannabinoids detection by screening method NEGATIVE NEGATIVE Urine opiates detection by screening method NEGATIVE NEGATIVE Urine barbiturates detection NEGATIVE NEGATIVE Screening urine tricyclic antidepressants detection NEGATIVE NEGATIVE Urine methadone detection by screening method NEGATIVE NEGATIVE Complete urinalysis with reflex to culture - 03/23/16 12:15 Urine color determination YELLOW NRG Urine clarity determination CLEAR NRG Urine pH measurement by test strip 5 5-9 Specific gravity of urine by test strip 1.015 1.016- 1.022 Urine protein assay by test strip, semi-quantitative 3+ NEGATIVE Urine glucose detection by automated test strip 2+ NEGATIVE Erythrocytes detection in urine sediment by light microscopy 2+ NEGATIVE Urine ketones detection by automated test strip NEGATIVE NEGATIVE Urine nitrite detection by test strip NEGATIVE NEGATIVE Urine total bilirubin detection by test strip NEGATIVE NEGATIVE Urine urobilinogen measurement by automated test strip (mass/volume) NORMAL NORMAL Urine leukocyte esterase detection by dipstick NEGATIVE NEGATIVE Automated urine sediment erythrocyte count by microscopy (number/high power field) [HPF] NRG Automated urine sediment leukocyte count by microscopy (number/high power field ) NONE NRG Bacteria detection in urine sediment by light microscopy NEGATIVE NRG Crystals detection in urine sediment by light microscopy NONE NRG Casts detection in urine sediment by light microscopy NONE NRG Mucus detection in urine sediment by light microscopy NEGATIVE NRG Complete urinalysis with reflex to culture NO NRG Encounters ACCT No. Visit Date/Time Discharge Status Pt. Type Provider Facility Loc./Unit Complaint [id number] 03/23/2016 11:00:00 03/23/2016 12:54:00 DIS Emergency INDER HOLCOMB APRN [facility] ER RIGHT CALF/HIP PAIN [id number] 12/13/2015 15:10:00 12/13/2015 17:28:00 DIS Emergency NICOLE SEWELL, PAULA T [facility] ER AMS [id number] 01/20/2013 13:08:00 01/20/2013 13:43:00 DIS Emergency INDER HOLCOMB APRN [facility] ER WOUND CHECK [id number] 01/19/2013 14:32:00 01/19/2013 18:31:00 DIS Emergency INDER HOLCOMB INDUSTRIAL GAS SERVICE HELPER [facility] ER CYST ON CHEST [id number] 10/15/2012 15:16:00 10/15/2012 18:08:00 DIS Emergency ELLIOT ADAMS DO [facility] ER FALL,HIP PAIN [id number] 06/07/2017 07:59:00 Document Registration [id number] 12/07/2014 16:10:00 Document Registration [id number] 12/07/2014 16:10:00 Document Registration [id number] 05/12/2011 20:21:00 Document Registration [id number] 08/04/2014 11:01:00 08/04/2014 23:59:59 CLS Outpatient PAULINO RODRIGUEZ NINA Tay [id number] 01/20/2014 12:28:00 01/20/2014 23:59:59 CLS Outpatient PAULINO RODRIGUEZ NINA Tay [id number] 01/20/2014 12:28:00 01/20/2014 23:59:59 CLS Outpatient PAULINO RODRIGUEZ NINA Tay [id number] 08/25/2013 09:26:00 08/25/2013 23:59:59 CLS Outpatient PAULINO RODRIGUEZ NINA Tay [id number] 08/24/2013 09:08:00 08/24/2013 23:59:59 CLS Outpatient PAULINO ROSASNINA Sandoval [id number] 08/24/2013 09:08:00 08/24/2013 23:59:59 CLS Outpatient PAULINO INDUSTRIAL GAS SERVICE HELPERNINA Sandoval [id number] 02/09/2013 16:26:00 02/09/2013 23:59:59 CLS Outpatient MCCULLOUGH PRITESH Seferino [id number] 01/23/2013 15:40:00 01/23/2013 23:59:59 CLS Outpatient PAULINO ROSASNINA Sandoval [id number] 09/03/2012 11:50:00 09/03/2012 23:59:59 CLS Outpatient PAULINO INDUSTRIAL GAS SERVICE HELPERNINA Sandoval [id number] 03/24/2012 10:22:00 03/24/2012 23:59:59 CLS Outpatient PAULINO INDUSTRIAL GAS SERVICE HELPERNINA Sandoval [id number] 12/18/2011 08:53:00 12/18/2011 23:59:59 CLS Outpatient NINA BOB APRN
--- OUTSIDE RECORDS SUMMARY | 2017-06-07 16:22 | XMS REPORT ---
Author Author NINA BOB Organization [employer] Address Unknown Phone Unavailable Care Team Providers Care Mill Laborer Name Role Phone NINA BOB CP Unavailable [...] Start Date End Date Status Dosage Clonazepam [facility] [id number] 1 MG Orally Twice a day May 16, 2015 1 tablet Results No Known Results Summary Purpose [employer] Submission
--- OUTSIDE RECORDS SUMMARY | 2017-06-07 16:22 | XMS REPORT ---
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
== END 2017-06-07 09:16 | disposition home or self-care (01) ==
LOC: SDC 07:43
PROVIDERS: ATTEND Specialist
DX: H26.40 Unspecified secondary cataract (principal); E11.9 Type 2 diabetes mellitus without complications; Z87.891 Personal history of nicotine dependence; Z79.4 Long term (current) use of insulin; Z79.899 Other long term (current) drug therapy
CPT/HCPCS: 82962

== ENCOUNTER → 2018-02-20 | Outpatient (CLI) | payer MEDICARE ==
[~2018-02-20] MED LIST changes: -LOSA50TA36 PO; +LOSA50TA7 PO; -ROSU20TA30 PO; +ROSU20TA31 PO
[2018-02-20 09:22] LABS: ALBUMIN 3.9 GM/DL (3.2-4.5); BILIRUBIN,TOTAL 0.7 MG/DL (0.1-1.0); CALCIUM 10.3 MG/DL (8.5-10.1); CREATININE SERUM 1.33 MG/DL (0.60-1.30); POTASSIUM 4.1 MMOL/L (3.6-5.0); TOTAL PROTEIN 7.2 GM/DL (6.4-8.2)
== END ==
LOC: LAB 08:21
PROVIDERS: ATTEND Family Medicine
DX: E11.9 Type 2 diabetes mellitus without complications (principal)
CPT/HCPCS: 36415; 80053; 80061; 83036; 85652; 86038; 86430

== ENCOUNTER 2020-11-01 14:53 | Emergency (ER) | payer MEDICARE ==
[~2020-11-01] VITALS: Ht 180 cm; Wt 136.0 kg
[~2020-11-01 14:53] MED LIST changes: +LOSA50TA63 PO; -LOSA50TA7 PO; -ROSU20TA31 PO; +ROSU20TA32 PO
--- NOTE | 2020-11-01 15:17 | ED Upper Extremity ---
General Chief Complaint: Upper Extremity Stated Complaint: L SHOULDER PAIN Source: patient Exam Limitations: no limitations History of Present Illness Date Seen by Provider: Nov 01, 2020 Time Seen by Provider: 15:17 Allergies and Home Medications Allergies Coded Allergies: No Known Drug Allergies (Verified , 03/23/16) Home Medications Hydrochlorothiazide 25 Mg Tablet, 25 MG PO DAILY, (Reported) Insulin Aspart 100 Unit/1 Ml Susp, 30 UNIT SQ DAILY, (Reported) Insulin Determir 1,000 Units/10 Ml Soln, 30 UNITS SQ DAILY, (Reported) Losartan Potassium 50 Mg Tablet, 50 MG PO DAILY, (Reported) Rosuvastatin Calcium 20 Mg Tablet, 20 MG PO DAILY, (Reported) Past Fgvtpbo-Nvlqoe-Egodcc Hx Immunizations Up To Date Tetanus Booster (TDap): Less than 5yrs Past Medical History Gallbladder, Joint Replacement Hypertension Neuropathy Reproductive Disorders: Yes Diabetes, Insulin dep Anxiety, Depression Physical Exam Vital Signs Vital Signs - First Documented 11/01/20 15:02 Temp 36.2 Pulse 100 Resp 18 B/P (MAP) 146/78 (100) Pulse Ox 98 Capillary Refill : Height, Weight, BMI Height: 5'11.00" Weight: 280lbs. 0.0oz. 127.251335eq; BMI Method:Stated Progress/Results/Core Measures Results/Orders My Orders Orders - EMILY MASSEY APRN Ketorolac Injection (Toradol Injection) (11/01/20 15:30) Shoulder, Left, 3 Views (11/01/20 15:25) Medications Given in ED Current Medications Medications Dose Ordered Sig/Mirella Route Start Time Stop Time Status Last Admin Dose Admin Ketorolac Tromethamine 30 mg ONCE ONCE IM 11/01/20 15:30 11/01/20 15:31 DC 11/01/20 15:43 30 MG Vital Signs/I&O 11/01/20 15:02 Temp 36.2 Pulse 100 Resp 18 B/P (MAP) 146/78 (100) Pulse Ox 98 Departure Impression Primary Impression: Degenerative joint disease of left shoulder Disposition: HOME, SELF-CARE Condition: Improved Departure-Patient Inst. Decision time for Depature: 16:10 Referrals: [facility] (PCP/Family) Primary Care Physician Patient Instructions: Osteoarthritis (DC) Add. Discharge Instructions: Plan: 1. Rest. May use ice/heat 20 minutes at a time as needed for pain. 2. May use Tylenol or Ibuprofen as needed per package for pain. 3. Use Flexeril as needed every 8 hours for breakthrough pain. Do not drive while taking or operated equipment. 4. Follow up with your doctor if your symptoms persist. 5. Return for any new, concerning, or worsening symptoms. All discharge instructions reviewed with patient and/or family. Voiced understanding. Scripts Cyclobenzaprine HCl (Cyclobenzaprine HCl) 10 Mg Tablet 10 MG PO Q8H PRN for SPASMS, #15 TAB 0 Refills Prov: EMILY MASSEY DATA MANAGEMENT ENGINEER 11/01/20 EMILY MASSEY DATA MANAGEMENT ENGINEER Nov 01, 2020 15:17
[2020-11-01] MEDS ORDERED: KETOROLAC 30 MG/ML VIAL IM ONE (15:30)
--- NOTE | 2020-11-01 16:04 | Diagnostic Imaging Report ---
INDICATION: Left shoulder pain. COMPARISON: None. FINDINGS: Two views of the left shoulder demonstrate mild degenerative changes of the AC and glenohumeral joint. There are subchondral cysts seen in the distal clavicle. There is no fracture or dislocation. IMPRESSION: Degenerative joint disease. No fracture identified. Dictated by: Dictated on workstation # [id number]
[2020-11-01] MEDS ORDERED: CYCL10TA9 PO (16:12)
[2020-11-01 16:25] VITALS: BP 146/78
== END 2020-11-01 16:25 | disposition home or self-care (01) ==
LOC: EDUNIT# 14:53 → ER 14:55
DX: M19.012 Primary osteoarthritis, left shoulder (principal); I10 Essential (primary) hypertension; E11.9 Type 2 diabetes mellitus without complications; Z79.4 Long term (current) use of insulin; Z79.899 Other long term (current) drug therapy
CPT/HCPCS: 73030

== ENCOUNTER 2021-01-23 06:07 | Outpatient (CLI) | payer MEDICARE ==
[~2021-01-23] VITALS: Ht 180.3 cm; Wt 138.4 kg
[~2021-01-23 06:07] MED LIST changes: +CYCL10TA9 PO
[2021-01-23] MEDS ORDERED: AMLO-251 PO (14:12)
[2021-01-23] MEDS ORDERED: LOSA50TA63 PO (14:12)
[2021-01-23] MEDS ORDERED: ATOR10TA PO (14:12)
== END 2021-01-23 14:49 | disposition home or self-care (01) ==
LOC: PREOP 06:07
PROVIDERS: ATTEND Surgery
DX: Z01.818 Encounter for other preprocedural examination (principal)

== ENCOUNTER 2021-01-30 08:43 | Day surgery (SDC) | payer MEDICARE ==
[~2021-01-30] VITALS: Ht 180.3 cm; Wt 138.4 kg
[~2021-01-30 08:43] MED LIST changes: +AMLO-251 PO; +ATOR10TA PO
[2021-01-30 08:59] VITALS: BP 166/90
[2021-01-30] MEDS ORDERED: LACTATED RINGERS 1,000 ML IV ONE (08:59)
[2021-01-30] MEDS ORDERED: LACTATED RINGERS 1,000 ML IV STA (09:02)
--- NOTE | 2021-01-30 09:30 | Progress Note-Pre Operative ---
Pre-Operative Progress Note H&P Reviewed The H&P was reviewed, patient examined and no changes noted. Time Seen by Provider: : Date H&P Reviewed: Jan 30, 2021 Time H&P Reviewed: : Pre-Operative Diagnosis: +colPETR Bauman DO Jan 30, 2021 09:30
[2021-01-30] MEDS ORDERED: PROPOFOL INJECTION 50 ML IV ONE (10:17)
[2021-01-30] MEDS ORDERED: MIDAZOLAM 2 MG/2 ML (VERSED) VIAL ONE (10:17)
[2021-01-30 10:45] VITALS: BP 124/61
[2021-01-30 10:50] VITALS: BP 126/59
--- NOTE | 2021-01-30 11:04 | Progress Note-Post Operative ---
Post-Operative Progess Note Surgeon (s)/Customer Operations Manager (s) Surgeon PETR PEÑA DO Customer Operations Manager: FCO TonyII Pre-Operative Diagnosis +cologuard Post-Operative Diagnosis Polyp Diverticula int hemorrhoids Procedure & Operative Findings Date of Procedure 01/30/21 Procedure Performed/Findings Colon with hot bx PROCEDURE NOTE: After informed consent was obtained, the patient was brought to the endoscopy suite, placed in bed in left lateral decubitus position. He was administered IV sedation by the DOCUMENT MANAGEMENT TECHNICIAN who then monitored his vitals the entire time, heart rate, blood pressure and pulse ox and the scope was inserted, pushed all the way to about 150 cm and pushed into the cecum. Just outside cecal cap saw a polyp, but may have been lipoma; took a picture and then did two biopsies. Then took a picture of appendiceal orifice and noted the ileo-cecal valve. Started to slowly withdraw the scope insufflating to look circumferentiallly at the de la vega starting in the cecum, up the ascending colon to the hepatic flexure, then down the transverse colon, splenic flexure, into the descending colon. Down into the sigmoid, where I saw another polyp and did another hot biopsy. I also noted some diverticula throughout here; but, only a few. Finally pulled the scope into the rectal vault and retroflexed the scope. Took picture of the internal hemorrhoids. The patient tolerated the procedure. He was recovered in endoscopy suite. Anesthesia Type IV sedation by DOCUMENT MANAGEMENT TECHNICIAN Estimated Blood Loss Estimated blood loss (mL): scant Specimens/Packing Specimens Removed cecal polyp, bx x 2 sigmoid polyp bx PETR PEÑA DO Jan 30, 2021 11:04
--- NOTE | 2021-01-30 11:05 | Endoscopy Discharge Instruct ---
Endo Procedure/Findings Findings 1.: Polyp 2.: Diverticulosis 3.: Internal Hemorrhoids Discharge Instructions - Activity: You might feel a little sleepy until tomorrow. This is due to the medicine you received to relax you. Until tomorrow, you should: NOT drive a car, operate machinery or power tools. NOT drink any alcoholic beverages. NOT make any important decisions or sign importortant papers. Do not return to work until tomorrow, unless otherwise instructed. Resume previous activities tomorrow. Diet: Start by taking liquids. If you tolerate liquids, advance to solid food. 1.: Colonscopy in 5 years Notify Physician - If you experience excessive bleeding, unusual abdominal pain, fever, or chest pain, contact your doctor immediately. PETR PEÑA DO Jan 30, 2021 11:05
[2021-01-30 11:40] VITALS: BP 170/91
[2021-01-30 11:55] VITALS: BP 170/91
--- NOTE | 2021-01-30 12:52 | Anesthesia-General Post-Op ---
MAC Patient Condition Mental Status/LOC: Same as Preop Cardiovascular: Satisfactory Nausea/Vomiting: Absent Respiratory: Satisfactory Pain: Controlled Complications: Absent Post Op Complications Complications None Follow Up Care/Instructions Patient Instructions None needed. Anesthesiology Discharge Order Discharge Order Patient is doing well, no complaints, stable vital signs, no apparent adverse anesthesia problems. No complications reported per nursing. HUGO PENA CRNA Jan 30, 2021 12:52
== END 2021-01-30 11:55 | disposition home or self-care (01) ==
LOC: ENDO 08:43
PROVIDERS: ATTEND Surgery
DX: D12.0 Benign neoplasm of cecum (principal); K63.5 Polyp of colon; K57.30 Diverticulosis of large intestine without perforation or abscess without bleeding; K64.8 Other hemorrhoids; I10 Essential (primary) hypertension; E11.42 Type 2 diabetes mellitus with diabetic polyneuropathy; E78.00 Pure hypercholesterolemia, unspecified; M19.90 Unspecified osteoarthritis, unspecified site; H54.7 Unspecified visual loss; E78.5 Hyperlipidemia, unspecified; G47.33 Obstructive sleep apnea (adult) (pediatric); F32.A Depression, unspecified; F41.9 Anxiety disorder, unspecified; E66.9 Obesity, unspecified; K21.9 Gastro-esophageal reflux disease without esophagitis; Z68.41 Body mass index [BMI] 40.0-44.9, adult; Z87.891 Personal history of nicotine dependence; Z79.899 Other long term (current) drug therapy; Z79.4 Long term (current) use of insulin

== ENCOUNTER 2021-12-01 09:09 | Emergency (ER) | payer MEDICARE ==
[~2021-12-01] VITALS: Ht 180.3 cm; Wt 143.5 kg
[~2021-12-01 09:09] MED LIST changes: +CYCL10TA25 PO; -CYCL10TA9 PO
[2021-12-01 09:14] VITALS: BP 176/98
[2021-12-01 09:47] LABS: BASOPHILS # (AUTO) 0.1 10^3/uL (0.0-0.1); BASOPHILS % (AUTO) 1 % (0-10); EOSINOPHILS # (AUTO) 0.4 10^3/uL (0.0-0.3); EOSINOPHILS % (AUTO) 3 % (0-10); HEMATOCRIT 47 % (40-54); HEMOGLOBIN 15.8 g/dL (13.3-17.7); LYMPHOCYTES # (AUTO) 2.2 10^3/uL (1.0-4.0); LYMPHOCYTES % (AUTO) 19 % (12-44); MEAN CORPUSCULAR HEMOGLOBIN 27 pg (25-34); MEAN CORPUSCULAR HGB CONC 33 g/dL (32-36); MEAN CORPUSCULAR VOLUME 81 fL (80-99); MEAN PLATELET VOLUME 9.5 fL (9.0-12.2); MONOCYTES % (AUTO) 9 % (0-12); NEUTROPHILS # (AUTO) 7.6 10^3/uL (1.8-7.8); NEUTROPHILS % (AUTO) 67 % (42-75); PLATELET COUNT 383 10^3/uL (130-400); WHITE BLOOD COUNT 11.3 10^3/uL (4.3-11.0)
[2021-12-01 09:55] LABS: PROTHROMBIN TIME PATIENT 13.3 SEC (12.2-14.7)
[2021-12-01 10:05] LABS: ALBUMIN 3.9 GM/DL (3.2-4.5); BILIRUBIN,TOTAL 0.5 MG/DL (0.1-1.0); CREATININE SERUM 1.51 MG/DL (0.60-1.30); POTASSIUM 4.7 MMOL/L (3.6-5.0); TOTAL PROTEIN 7.3 GM/DL (6.4-8.2)
--- NOTE | 2021-12-01 11:01 | ED GI ---
General Chief Complaint: Abdominal/GI Problems Stated Complaint: BLACK STOOLS Nursing Triage Note: Pt seen at [facility] today, was sent for evaluation of dark and tarry stools. Mild abd discomfort "grinding" and rectal pain. Stools have been hard and only once a day. Symptoms started yesterday AM. Source of Information: Patient, Old Records Exam Limitations: No Limitations History of Present Illness Date Seen by Provider: Dec 01, 2021 Time Seen by Provider: 09:20 Initial Comments This 66-year-old gentleman presents to the emergency room as directed by the [facility] for evaluation of black stools and abdominal pain. He has had some hard stools recently. He reports history of hemorrhoids and hemorrhoid pain with bowel movements. He has noted some "gurgling" in the abdomen recently. He went to the walk-in clinic and it was deferred to the ER. He denies any bright red blood per rectum. He had a colonoscopy in April with Dr. Peña. He had a polyp removed which was negative for neoplasm by his account. He had diarrhea 2 weeks ago took some Pepto-Bismol. His abdomen is not tender at present. Allergies and Home Medications Allergies Coded Allergies: No Known Drug Allergies (Verified , 03/23/16) Patient Home Medication List Home Medication List Reviewed: Yes Amlodipine Besylate (Amlodipine Besylate) 10 Mg Tablet, 10 MG PO DAILY, (Reported) Entered as Reported by: ANDREWS PARSONS on 01/23/21 141 Atorvastatin Calcium (Lipitor) 10 Mg Tablet, 10 MG PO HS, (Reported) Entered as Reported by: ANDREWS PARSONS on 01/23/21 141 Hydrochlorothiazide (Hydrochlorothiazide) 25 Mg Tablet, 25 MG PO DAILY, (Reported) Entered as Reported by: EBER BUSTOS on 06/06/17 1037 Insulin Aspart (Novolog) 100 Unit/1 Ml Susp, 30 UNIT SQ TID, (Reported) Entered as Reported by: EBER BUSTOS on 06/06/17 1037 Insulin Determir (Levemir) 1,000 Units/10 Ml Soln, 30 UNITS SQ BID, (Reported) Entered as Reported by: EBER BUSTOS on 06/06/17 1037 Losartan Potassium (Losartan Potassium) 50 Mg Tablet, 50 MG PO DAILY, (Reported) Entered as Reported by: EBER BUSTOS on 06/06/17 1037 Review of Systems Review of Systems Constitutional: no symptoms reported EENTM: No Symptoms Reported Respiratory: No Symptoms Reported Cardiovascular: No Symptoms Reported Gastrointestinal: See HPI Genitourinary: No Symptoms Reported Musculoskeletal: no symptoms reported Skin: no symptoms reported Psychiatric/Neurological: No Symptoms Reported Endocrine: No Symptoms Reported Past Hcefloy-Wgubaz-Zdyxwh Hx Patient Social History Tobacco Use?: No Use of E-Cig and/or Vaping dev: No Substance use?: No Alcohol Use?: No Pt feels they are or have been: No Immunizations Up To Date Tetanus Booster (TDap): Less than 5yrs First/Initial COVID19 Vaccinat: 05/12 Second COVID19 Vaccination Kendrick: 06/12 Third COVID19 Vaccination Date: 05/12 Past Medical History Surgeries: Yes (BILAT KNEE SCOPES) Abdominal (Colonoscopy with polypectomy), Gallbladder, Joint Replacement Respiratory: No Cardiac: Yes Hypertension Neurological: Yes (FEET ) Neuropathy Reproductive Disorders: Yes Genitourinary: No Gastrointestinal: Yes Gastroesophageal Reflux, Chronic Constipation, Hemorrhoids, Polyps, Gall Bladder Disease Musculoskeletal: Yes (LEG AND MUSCLE CRAMPS, HX OF NEUROPATHY) Arthritis Endocrine: Yes Diabetes, Insulin dep HEENT: Yes (DIABETIC RETINOPATHY/ BLIND IN RIGHT EYE) Loss of Vision: Right Cancer: No Psychosocial: Yes Anxiety, Depression Integumentary: Yes (HX OF SHINGLES AND RASHES) Blood Disorders: No Adverse Reaction/Blood Tranf: No Physical Exam Vital Signs Vital Signs - First Documented 12/01/21 09:14 Temp 36.4 Pulse 105 Resp 24 B/P (MAP) 176/98 (124) Pulse Ox 97 O2 Delivery Room Air Capillary Refill : Less Than 3 Seconds Height/Weight/BMI Height: 5'11.00" Weight: 280lbs. 0.0oz. 127.613177as; 44.00 BMI Method:Stated General Appearance: WD/WN, no apparent distress HEENT: normal ENT inspection, other (Blind right eye) Neck: normal inspection Respiratory: lungs clear, normal breath sounds, no respiratory distress Cardiovascular: regular rate, rhythm, no edema, no murmur Gastrointestinal: non tender, soft; No distended Rectal: normal rectal tone, heme positive stool, hemorrhoids; No mass, No tenderness Extremities: normal inspection, no pedal edema Neurologic/Psychiatric: no motor/sensory deficits, alert, normal mood/affect, oriented x 3 Skin: normal color, warm/dry Progress/Results/Core Measures Results/Orders Lab Results Laboratory Tests Test 12/01/21 09:34 Range/Units White Blood Count 11.3 H 4.3-11.0 10^3/uL Red Blood Count 5.85 H 4.30-5.52 10^6/uL Hemoglobin 15.8 13.3-17.7 g/dL Hematocrit 47 40-54 % Mean Corpuscular Volume 81 80-99 fL Mean Corpuscular Hemoglobin 27 25-34 pg Mean Corpuscular Hemoglobin Concent 33 32-36 g/dL Red Cell Distribution Width 14.3 10.0-14.5 % Platelet Count 383 130-400 10^3/uL Mean Platelet Volume 9.5 9.0-12.2 fL Immature Granulocyte % (Auto) 1 % Neutrophils (%) (Auto) 67 42-75 % Lymphocytes (%) (Auto) 19 12-44 % Monocytes (%) (Auto) 9 0-12 % Eosinophils (%) (Auto) 3 0-10 % Basophils (%) (Auto) 1 0-10 % Neutrophils # (Auto) 7.6 1.8-7.8 10^3/uL Lymphocytes # (Auto) 2.2 1.0-4.0 10^3/uL Monocytes # (Auto) 1.0 0.0-1.0 10^3/uL Eosinophils # (Auto) 0.4 H 0.0-0.3 10^3/uL Basophils # (Auto) 0.1 0.0-0.1 10^3/uL Immature Granulocyte # (Auto) 0.1 0.0-0.1 10^3/uL Prothrombin Time 13.3 12.2-14.7 SEC INR Comment 1.0 0.8-1.4 Activated Partial Thromboplast Time 34 24-35 SEC Sodium Level 136 135-145 MMOL/L Potassium Level 4.7 3.6-5.0 MMOL/L Chloride Level 103 98-107 MMOL/L Carbon Dioxide Level 22 21-32 MMOL/L Anion Gap 11 5-14 MMOL/L Blood Urea Nitrogen 25 H 7-18 MG/DL Creatinine 1.51 H 0.60-1.30 MG/DL Estimat Glomerular Filtration Rate 50 BUN/Creatinine Ratio 17 Glucose Level 223 H 70-105 MG/DL Calcium Level 10.0 8.5-10.1 MG/DL Corrected Calcium 10.1 8.5-10.1 MG/DL Total Bilirubin 0.5 0.1-1.0 MG/DL Aspartate Amino Transf (AST/SGOT) 44 H 5-34 U/L Alanine Aminotransferase (ALT/SGPT) 27 0-55 U/L Alkaline Phosphatase 87 40-136 U/L Total Protein 7.3 6.4-8.2 GM/DL Albumin 3.9 3.2-4.5 GM/DL My Orders Orders - PAULA RIVERA MD Cbc With Automated Diff (12/01/21 09:20) Comprehensive Metabolic Panel (12/01/21 09:20) Protime With Inr (12/01/21 09:20) Partial Thromboplastin Time (12/01/21 09:20) Ed Iv/Invasive Line Start (12/01/21 09:20) Fecal Occult Bedside (12/01/21 09:20) Rocuronium 5 Ml Syringe (Rocuronium 5 Ml (12/01/21 11:15) Vital Signs/I&O 12/01/21 12/01/21 12/01/21 09:14 10:30 11:20 Temp 36.4 Pulse 105 85 90 Resp 24 16 18 B/P (MAP) 176/98 (124) 157/112 183/94 Pulse Ox 97 98 O2 Delivery Room Air Room Air Blood Pressure Mean: 127 Progress Progress Note : Progress Note Colonoscopy report was reviewed and discussed with patient. Digital rectal exam revealed hemorrhoids without any mass or abnormal tenderness. No active bleeding was noted. Hemoccult was positive. Patient has had recent colonoscopy with polypectomy within the last year. His black stools may have been caused by upper GI bleeding or by Pepto-Bismol. He was advised to discuss this further with his PCP and/or Dr. Peña. See discharge instructions for further discussion. Departure Impression Primary Impression: Heme positive stool Additional Impressions: Hemorrhoids Qualified Codes: K64.9 - Unspecified hemorrhoids Melena Disposition: 01 HOME, SELF-CARE Condition: Stable Departure-Patient Inst. Decision time for Depature: 10:59 Referrals: [facility] (PCP/Family) Primary Care Physician PETR PEÑA DO Patient Instructions: Hemorrhoids ED, Bloody Stools Add. Discharge Instructions: The source of blood in your stools is uncertain. It may be from hemorrhoids or the diverticuli (colon pouches) noted on your colonoscopy. The bleeding may be coming from higher up since it is causing a dark color. You did not have an upper scope when you had your colonoscopy. You should follow-up with Dr. Peña in the next few weeks and discuss when a repeat colonoscopy should be performed as well as if an EGD (scope of stomach and esophagus) is appropriate. Try to keep your stools soft to prevent irritating the diverticuli and hemorrhoids. Eat plenty of fruits, vegetables, and whole grains. Avoid excessive meats, cheeses, fast foods and processed foods. You may use stool softeners or MiraLAX (polyethylene glycol) to help keep your stool soft. Return to the ER if you have worsening symptoms. Follow-up with your primary care provider within the next few weeks as well. All discharge instructions reviewed with patient and/or family. Voiced understanding. Copy Copies To 1: [facility] Copies To 2: PETR PEÑA JOSHUA T MD Dec 01, 2021 11:01
[2021-12-01] MEDS ORDERED: ROCURONIUM 10 MG/ML 5 ML SYRINGE IV ONE (11:15)
== END 2021-12-01 11:22 | disposition home or self-care (01) ==
LOC: EDUNIT# 09:09 → ER 09:10
DX: K64.9 Unspecified hemorrhoids (principal); E11.9 Type 2 diabetes mellitus without complications; Z79.4 Long term (current) use of insulin
CPT/HCPCS: 36415; 80053; 85025; 85610; 85730